=== PATIENT | male | born 1990 | race American Indian/Alaskan Native ===

== ENCOUNTER 2016-10-09 10:49 | Emergency (ER) | payer SELFPAY ==
[2016-10-09 11:11] VITALS: BP 132/86
[2016-10-09 11:37] LABS: Bacteria,Urine 1+ /HPF (Negative); Bilirubin,Urine NEG (Negative); Blood,Urine NEG (Negative); Ketones,Urine NEG (Negative); Leukocyte Esterase,Urine NEG (Negative); Mucus,Urine FEW /HPF; Nitrite,Urine NEG (Negative); Protein,Urine <15 mg/dL mg/dL (Negative)
[2016-10-09 11:38] LABS: WBC,Urine < 1.0 /HPF (0.0-6.0)
[2016-10-09] MEDS ORDERED: XYLOCAINE 1% MPF 5 mL INFILTRATI ONE (11:55)
[2016-10-09] MEDS ORDERED: ROCEPHIN IM ONE (11:55)
[2016-10-09] MEDS ORDERED: ZITHROMAX PO ONE (11:56)
--- NOTE | 2016-10-09 12:05 | Emergency Department Report ---
ED Male HPI - General Chief complaint: Urogenital-Male Stated complaint: STD CHECK UP Time Seen by Provider: 10/09/16 11:17 Source: patient Mode of arrival: Ambulatory Limitations: No Limitations - History of Present Illness Complaint: other (TINGLING W URINATION AND LESIONS OF PENIS ) -: Gradual (PRODROME OF ILLNESS 1 W AGO) Location: penis Severity scale (0 -10): 2 Quality: other (TINGLE WHEN URINATES; LESIONS PAINFUL) Consistency: intermittent Improves with: none Worsens with: none new sexual partner denies other symptoms, dysuria (TINGLE). denies: discharge, swelling, mass, rash, urinary retention, blood in urine, fever, nausea/vomiting, incontinence - Related Data Sexually active: Yes Home Medications Medication Instructions Recorded Confirmed Last Taken Buprenorphine HCl/Naloxone HCl 0.5 tab SL QDAY 10/09/16 10/09/16 10/09/16 02:00 [Zubsolv 8.6-2.1 mg Tablet Sl] Previous Rx's Medication Instructions Recorded Last Taken Type Acyclovir [Zovirax Cap] 200 mg PO 5XD #50 cap 10/09/16 Unknown Rx Allergies Allergy/AdvReac Type Severity Reaction Status Date / Time No Known Allergies Allergy Unverified 10/09/16 11:04 ED Review of Systems ROS: Stated complaint: STD CHECK UP Other details as noted in HPI Comment: Unobtainable due to pts medical conditions Constitutional: no symptoms reported, see HPI. denies: chills, diaphoresis, fever, malaise Eyes: as per HPI. denies: eye pain ENT: as per HPI. denies: ear pain, throat pain Respiratory: no symptoms reported, see HPI. denies: cough, orthopnea Cardiovascular: as per HPI. denies: chest pain, palpitations, dyspnea on exertion, orthopnea Endocrine: no symptoms reported, see HPI. denies: excessive sweating, flushing , intolerance to cold, intolerance to heat Gastrointestinal: as per HPI. denies: abdominal pain, nausea, vomiting, diarrhea, constipation, hematemesis, melena, hematochezia Genitourinary: as per HPI, dysuria (TINGLE), other (LESION). denies: urgency, frequency, hematuria, discharge, testicular pain, testicular mass Musculoskeletal: as per HPI. denies: back pain, joint swelling Skin: as per HPI Neurological: as per HPI. denies: headache, weakness Psychiatric: as per HPI. denies: anxiety, depression Hematological/Lymphatic: as per HPI. denies: easy bleeding ED Past Medical Hx - Past Medical History Previous Medical History?: Yes Additional medical history: NARC ADDICTION ON SUBOXONE - Surgical History Hx Appendectomy: Yes Additional Surgical History: left ACL repair - Family History Family history: no significant - Social History Smoking Status: Current Every Day Smoker Substance Use Type: Prescribed - Medications Home Medications: Home Medications Medication Instructions Recorded Confirmed Last Taken Type Acyclovir [Zovirax Cap] 200 mg PO 5XD #50 cap 10/09/16 Unknown Rx Buprenorphine HCl/Naloxone HCl 0.5 tab SL QDAY 10/09/16 10/09/16 10/09/16 02:00 History [Zubsolv 8.6-2.1 mg Tablet Sl] ED Physical Exam - General Limitations: No Limitations General appearance: alert, in no apparent distress - Head Head exam: Present: atraumatic - Eye Eye exam: Present: normal appearance - ENT ENT exam: Present: normal exam, normal orophraynx, mucous membranes moist - Neck Neck exam: Present: normal inspection. Absent: tenderness - Respiratory Respiratory exam: Present: normal lung sounds bilaterally - Cardiovascular Cardiovascular Exam: Present: regular rate - GI/Abdominal GI/Abdominal exam: Present: soft - Rectal Rectal exam: Present: normal inspection - exam: Present: circumcision. Absent: normal inspection, testicular tenderness, urethral discharge, scrotal swelling, vertical testicular lie External exam: Present: erythema, lesions (a linear patch of painful vesicular with yellow drainage lesions on shaft of penis. ). Absent: normal external exam , swelling, lacerations, ecchymosis, bleeding - Extremities Exam Extremities exam: Present: normal inspection, full ROM. Absent: tenderness - Back Exam Back exam: Present: normal inspection, full ROM. Absent: tenderness, CVA tenderness (R), CVA tenderness (L) - Neurological Exam Neurological exam: Present: alert, oriented X3, CN II-XII intact - Psychiatric Psychiatric exam: Present: normal affect, normal mood - Skin Skin exam: Present: warm, dry, intact, normal color ED Course Vital Signs 10/09/16 11:08 Temperature 98.4 F Pulse Rate 72 Respiratory 17 Rate Blood Pressure 132/86 O2 Sat by Pulse 97 Oximetry - Reevaluation(s) Reevaluation #2: 10/09/16 12:08 to er w what he thinks is sti tingle w burn and lesions as described in exam 1 w ago felt flu like s/s but just thought he was tired no fever no cva tenderness no hiv or immune compromise healthy appearing on subox for rx narc use new sex partner this year and his old sexual partner started in feb. only sex w women unprotected sex long discussion w pt about follow up and suppressive tx. ED Medical Decision Making - Medical Decision Making lesions suggestive of herpes on penile shaft - Differential Diagnosis UTI V STI Critical care attestation.: If time is entered above; I have spent that time in minutes in the direct care of this critically ill patient, excluding procedure time. ED Disposition Clinical Impression: STI (sexually transmitted infection), Herpes genitalia Disposition: - TO HOME OR SELFCARE Is pt being admited?: No Does the pt Need Aspirin: No Condition: Stable Instructions: Genital Herpes Simplex (ED), Safe Sex (ED), Sexually Transmitted Diseases in Adolescents (ED) Additional Instructions: safe sex med as ordered today you were treated here today for STI follow up with PCP for suppressive treatment Referrals: PRIMARY CAREMD [Primary Care Provider] - 3-5 Days SALINAS DONIS MD [Staff Physician] - 3-5 Days Time of Disposition: 12:05
== END 2016-10-09 13:03 | disposition home or self-care (01) ==
LOC: ED 10:49
DX: A64 Unspecified sexually transmitted disease (principal); A60.01 Herpesviral infection of penis; F17.200 Nicotine dependence, unspecified, uncomplicated
CPT/HCPCS: 81001; 87591; 96372; 99283; J0696

== ENCOUNTER 2017-03-30 16:00 | Emergency (ER) | payer SELFPAY ==
[2017-03-30 17:22] LABS: Hematocrit 42.8 % (35.5-45.6); Hemoglobin 13.8 gm/dl (11.8-15.2); Mean Corpuscular HGB Conc 32 % (32-34); Mean Corpuscular Hemoglobin 28 pg (28-32); Mean Corpuscular Volume 86 fl (84-94); Platelet Count 130 K/mm3 (140-440); Red Blood Count 4.95 M/mm3 (3.65-5.03); Red Cell Distribution Width 13.7 % (13.2-15.2)
[2017-03-30 17:26] LABS: Bilirubin,Urine NEG (Negative); Blood,Urine NEG (Negative); Color,Urine Yellow (Yellow); Mucus,Urine 3+ /HPF; Nitrite,Urine NEG (Negative)
[2017-03-30 17:54] LABS: BUN/Creatinine Ratio 12; Blood Urea Nitrogen 11 mg/dL (9-20); Calcium 8.4 mg/dL (8.4-10.2); Hemolysis Index 5
[2017-03-30 20:33] LABS: Basophils % (Manual) 0 % (0.0-1.8); Total Cells Counted 100
[2017-03-30 20:34] LABS: Anisocytosis RARE; Eosinophils % (Manual) 0 % (0.0-4.3); Platelet Estimate Consistent w Auto
[2017-03-30] MEDS ORDERED: NACL 0.9% 1000 ML 1,000 ML IV ONE (23:15)
[2017-03-30] MEDS ORDERED: MOTRIN PO ONE (23:15)
[2017-03-30] MEDS ORDERED: LIDOCAINE VISCOUS 2% PO ONE (23:15)
--- NOTE | 2017-03-30 23:38 | Emergency Department Report ---
- General Chief Complaint: Urogenital-Male Stated Complaint: STD, FLU Time Seen by Provider: 03/30/17 21:10 Source: patient Mode of arrival: Ambulatory Limitations: No Limitations - History of Present Illness Initial Comments: This is a 27-year-old male nontoxic, well nourished in appearance, no acute signs of distress presents to the ED with c/o of productive cough, body aches, fever, chills, rhinorrhea, and nasal congestion 2 days. Patient describes productive cough as yellow/green mucus production. Patient also is complainng about possible STD. Patient stated he had unprotected sex with a female last week and developed symptoms couple days later with canal discharge. Patient denies any testicular pain or testicular swelling. Patient denies any penile ulcers or penile lesions. Patient denies polyuria, hematuira, or dysuria, Denies back pain. Patient denies any recent travels, long car rides, recent hospital stays. Patient denies any calf pain or calf tenderness. Denies any hemoptysis. Patient denies chest pain, shortness of breath, fever, chills, nausea, vomiting, headache, stiff neck, numbness, tingling. Patient denies any allergies or PMH. MD Complaint: fever, cough, rhinorrhea, nasal congestion, other (body aches) -: days(s) (2) Severity: mild Severity scale (0 -10): 8 Quality: aching Consistency: constant Improves With: nothing Worsens With: nothing Associated Symptoms: fever, chills, rhinorrhea, nasal congestion, cough, other ( penile discharge). denies: myalgias, diaphoresis, headache, sore throat, stiff neck, chest pain, shortness of breath, abdominal pain, nausea, vomiting, diarrhea, dysuria, rash, confusion, right sweats, weight loss, epistaxis, hoarseness, ear pain Treatments Prior to Arrival: none - Related Data Home Medications Medication Instructions Recorded Confirmed Last Taken Buprenorphine HCl/Naloxone HCl 0.5 tab SL QDAY 10/09/16 10/09/16 10/09/16 02:00 [Zubsolv 8.6-2.1 mg Tablet Sl] Previous Rx's Medication Instructions Recorded Last Taken Type Acyclovir [Zovirax Cap] 200 mg PO 5XD #50 cap 10/09/16 Unknown Rx Ibuprofen [Motrin] 600 mg PO Q8H PRN #30 tablet 03/31/17 Unknown Rx Levofloxacin [Levaquin TAB] 750 mg PO QDAY #7 tablet 03/31/17 Unknown Rx Oseltamivir [Tamiflu] 75 mg PO BID #14 cap 03/31/17 Unknown Rx Allergies Allergy/AdvReac Type Severity Reaction Status Date / Time No Known Allergies Allergy Unverified 10/09/16 11:04 ED Review of Systems ROS: Stated complaint: STD, FLU Other details as noted in HPI Constitutional: chills, fever Eyes: denies: eye pain, eye discharge, vision change ENT: denies: ear pain, throat pain Respiratory: cough. denies: shortness of breath, wheezing Cardiovascular: denies: chest pain, palpitations Endocrine: no symptoms reported Gastrointestinal: denies: abdominal pain, nausea, diarrhea Genitourinary: discharge. denies: urgency, dysuria Musculoskeletal: denies: back pain, joint swelling, arthralgia Skin: denies: rash, lesions Neurological: denies: headache, weakness, paresthesias Psychiatric: denies: anxiety, depression Hematological/Lymphatic: denies: easy bleeding, easy bruising ED Past Medical Hx - Past Medical History Previous Medical History?: Yes Additional medical history: NARC ADDICTION ON SUBOXONE - Surgical History Past Surgical History?: Yes Hx Appendectomy: Yes Additional Surgical History: left ACL repair - Social History Smoking Status: Current Every Day Smoker Substance Use Type: Marijuana, Prescribed - Medications Home Medications: Home Medications Medication Instructions Recorded Confirmed Last Taken Type Acyclovir [Zovirax Cap] 200 mg PO 5XD #50 cap 10/09/16 Unknown Rx Buprenorphine HCl/Naloxone HCl 0.5 tab SL QDAY 10/09/16 10/09/16 10/09/16 02:00 History [Zubsolv 8.6-2.1 mg Tablet Sl] Ibuprofen [Motrin] 600 mg PO Q8H PRN #30 tablet 03/31/17 Unknown Rx Levofloxacin [Levaquin TAB] 750 mg PO QDAY #7 tablet 03/31/17 Unknown Rx Oseltamivir [Tamiflu] 75 mg PO BID #14 cap 03/31/17 Unknown Rx ED Physical Exam - General Limitations: No Limitations General appearance: alert, in no apparent distress - Head Head exam: Present: atraumatic, normocephalic, normal inspection - Eye Eye exam: Present: normal appearance, PERRL, EOMI. Absent: scleral icterus, conjunctival injection, nystagmus, periorbital swelling, periorbital tenderness Pupils: Present: normal accommodation - ENT ENT exam: Present: normal exam, normal orophraynx, mucous membranes moist, TM's normal bilaterally, normal external ear exam - Neck Neck exam: Present: normal inspection, full ROM. Absent: tenderness, meningismus, lymphadenopathy, thyromegaly - Respiratory Respiratory exam: Present: normal lung sounds bilaterally. Absent: respiratory distress, wheezes, rales, rhonchi, stridor, chest wall tenderness, accessory muscle use, decreased breath sounds, prolonged expiratory - Cardiovascular Cardiovascular Exam: Present: regular rate, normal rhythm, normal heart sounds. Absent: irregular rhythm, systolic murmur, diastolic murmur, rubs, gallop - GI/Abdominal GI/Abdominal exam: Present: soft, normal bowel sounds. Absent: distended, tenderness, guarding, rebound, rigid, diminished bowel sounds - Rectal Rectal exam: Present: deferred - exam: Present: normal inspection, urethral discharge (white/yellow color). Absent: testicular tenderness, scrotal swelling, vertical testicular lie External exam: Present: normal external exam. Absent: erythema, swelling, lesions, lacerations, ecchymosis, bleeding - Extremities Exam Extremities exam: Present: normal inspection, full ROM, normal capillary refill. Absent: tenderness, pedal edema, joint swelling, calf tenderness - Back Exam Back exam: Present: normal inspection, full ROM. Absent: tenderness, CVA tenderness (R), CVA tenderness (L), muscle spasm, paraspinal tenderness, vertebral tenderness, rash noted - Neurological Exam Neurological exam: Present: alert, oriented X3 - Psychiatric Psychiatric exam: Present: normal affect, normal mood - Skin Skin exam: Present: warm, dry, intact, normal color. Absent: rash ED Course Vital Signs 03/30/17 03/31/17 16:52 01:36 Temperature 101.4 F H 98.5 F Pulse Rate 94 H 82 Respiratory 20 18 Rate Blood Pressure 112/61 Blood Pressure 110/72 [Right] O2 Sat by Pulse 98 100 Oximetry - Reevaluation(s) Reevaluation #1: 03/30/17 23:41 Patient is speaking in full sentences with no signs of distress noted. - Consultations Consultation #1: 03/30/17 23:41 Dr. Pisano has been consulted about patient history, physical exam, and lab findings and agrees to the plan of care in the ED and discharge follow-up. ED Medical Decision Making - Lab Data Result diagrams: 03/30/17 17:04 03/30/17 17:04 - Medical Decision Making This is a 27-year-old male that presents with pneumonia and possible STD exposure. Patient is stable and was examined by me. Chest x-ray has been obtained and dictated by radiologist with pneumonia. Patient notified of x-ray results with no plates noted by the patient. Influenza swab negative. Patient received Motrin, lidocaine viscous and Tessalon Perles in the ED. patient also received 1 L of normal saline. Patient received 1 g of Rocephin and 1 g of azithromycin. He will obtain. Gonorrhea and chlamydia pending. Patient was instructed to return in 3 days to obtain results of gonorrhea and chlamydia. Vital signs stable prior to discharge. Patient is afebrile. Normal heart rate. I'll treat patient with Levaquin at discharge due to patient stating symptoms are worsening. I will also treat patient with Tamiflu due to flulike symptoms empirically. Patient was orally rehydrated in the ER and patient tolerated well with no signs of nasuea or vomiting. Patient was instructed Follow-up with a primary care doctor in 3-5 days or if symptoms worsen and continue return to emergency room as soon as possible. At time time of discharge, the patient does not seem toxic or ill in appearance. No acute signs of distress noted. Patient agrees to discharge treatment plan of care. No further questions noted by the patient. Critical care attestation.: If time is entered above; I have spent that time in minutes in the direct care of this critically ill patient, excluding procedure time. ED Disposition Clinical Impression: Possible exposure to STD PNA (pneumonia) Qualifiers: Pneumonia type: due to unspecified organism Laterality: right Lung location: middle lobe of lung Qualified Code(s): J18.1 - Lobar pneumonia, unspecified organism Disposition: TO HOME OR SELFCARE Is pt being admited?: No Does the pt Need Aspirin: No Condition: Stable Instructions: Bacterial Pneumonia (ED), Safe Sex (ED), Levofloxacin (By mouth) , Fever in Adults (ED), Ibuprofen (By mouth) Additional Instructions: Follow-up with a primary care doctor in 3-5 days or if symptoms worsen and continue return to emergency room as soon as possible. Increase hydration, rest, and take Motrin as prescribed for fever episode. Return in 3 days to obtain results of gonorrhea and chlamydia. Prescriptions: Ibuprofen [Motrin] 600 mg PO Q8H PRN #30 tablet PRN Reason: Fever Levofloxacin [Levaquin TAB] 750 mg PO QDAY #7 tablet Oseltamivir [Tamiflu] 75 mg PO BID #14 cap Referrals: ANALI ESPARZA MD [Primary Care Provider] - 3-5 Days PRIMARY CARE, [Referring] - 3-5 Days [facility] [Outside] - 3-[address] [facility] [Outside] - 3-5 Days Forms: Work/School Release Form(ED)
--- NOTE | 2017-03-31 00:55 | XRay Report ---
FINAL REPORT EXAM: XR CHEST ROUTINE 2V HISTORY: cough TECHNIQUE: 2 views of the chest. PRIORS: None. FINDINGS: The cardiomediastinal silhouette appears normal. There is a patchy right middle lobe infiltrate consistent with pneumonia. The bones and soft tissues are unremarkable. IMPRESSION: Patchy right middle lobe infiltrate consistent with pneumonia
[2017-03-31 01:37] VITALS: BP 110/72
[2017-03-31] MEDS ORDERED: ROCEPHIN IM ONE (01:37)
[2017-03-31] MEDS ORDERED: ZITHROMAX PO ONE (01:37)
[2017-03-31] MEDS ORDERED: XYLOCAINE 1% MPF 5 mL INFILTRATI ONE (01:37)
[2017-03-31] MEDS ORDERED: ZOFRAN ODT ONE (04:35)
[2017-03-31] MEDS ORDERED: ZOFRAN ODT PO ONE (04:37)
== END 2017-03-31 04:25 | disposition home or self-care (01) ==
LOC: ED 16:00
DX: J18.1 Lobar pneumonia, unspecified organism (principal); F17.200 Nicotine dependence, unspecified, uncomplicated; F12.10 Cannabis abuse, uncomplicated; Z90.49 Acquired absence of other specified parts of digestive tract
CPT/HCPCS: 36415; 71046; 80048; 81001; 82140; 82550; 85007; 85025; 87040; 87086; 87116; 87400; 87430; 87591; 96360; 96372; 99284; J0696; J7030; Q0162

== ENCOUNTER 2018-05-20 08:49 | Emergency (ER) | payer BC, OTHER ==
[2018-05-20 09:01] VITALS: BP 123/82
--- NOTE | 2018-05-20 09:40 | Emergency Department Report ---
ED General Adult HPI - General Chief complaint: Medical Clearance Stated complaint: CHEST PAIN/HICCUPS Time Seen by Provider: 05/20/18 09:26 Source: patient Mode of arrival: Ambulatory Limitations: No Limitations - History of Present Illness Initial comments: Pt presents to the ED with c/o hiccuping consistently for the last 8 hours. The patient states that he took a couple of sips of coke and then begin to experience the hiccups. He denies any belching, nausea, vomiting, burning sensation. He denies any hx of GERD. He states he has never had this occur before. The patient denies any tongue edema, SOB, feeling like anything is stuck. Pt also has had a bump present in the left groin that began a couple of weeks ago. he states it will go away and come back. He denies any fever or drainage. - Related Data Home Medications Medication Instructions Recorded Confirmed Last Taken Buprenorphine HCl/Naloxone HCl 0.5 tab SL QDAY 10/09/16 10/09/16 10/09/16 02:00 [Zubsolv 8.6-2.1 mg Tablet Sl] Previous Rx's Medication Instructions Recorded Last Taken Type Acyclovir [Zovirax Cap] 200 mg PO 5XD #50 cap 10/09/16 Unknown Rx Ibuprofen [Motrin 600 MG tab] 600 mg PO Q8H PRN #30 tablet 03/31/17 Unknown Rx Oseltamivir [Tamiflu] 75 mg PO BID #14 cap 03/31/17 Unknown Rx levoFLOXacin [Levaquin TAB] 750 mg PO QDAY #7 tablet 03/31/17 Unknown Rx Famotidine [Pepcid] 20 mg PO DAILY #20 tablet 05/20/18 Unknown Rx Sulfamethoxazole/Trimethoprim 1 each PO BID 7 Days #14 tablet 05/20/18 Unknown Rx [Bactrim DS TAB] Allergies Allergy/AdvReac Type Severity Reaction Status Date / Time No Known Allergies Allergy Verified 05/20/18 08:50 ED Review of Systems ROS: Stated complaint: CHEST PAIN/HICCUPS Other details as noted in HPI Comment: All other systems reviewed and negative ED Past Medical Hx - Past Medical History Previous Medical History?: No Additional medical history: NARC ADDICTION ON SUBOXONE - Surgical History Hx Appendectomy: Yes Additional Surgical History: left ACL repair - Social History Smoking Status: Current Every Day Smoker - Medications Home Medications: Home Medications Medication Instructions Recorded Confirmed Last Taken Type Acyclovir [Zovirax Cap] 200 mg PO 5XD #50 cap 10/09/16 Unknown Rx Buprenorphine HCl/Naloxone HCl 0.5 tab SL QDAY 10/09/16 10/09/16 10/09/16 02:00 History [Zubsolv 8.6-2.1 mg Tablet Sl] Ibuprofen [Motrin 600 MG tab] 600 mg PO Q8H PRN #30 tablet 03/31/17 Unknown Rx Oseltamivir [Tamiflu] 75 mg PO BID #14 cap 03/31/17 Unknown Rx levoFLOXacin [Levaquin TAB] 750 mg PO QDAY #7 tablet 03/31/17 Unknown Rx Famotidine [Pepcid] 20 mg PO DAILY #20 tablet 05/20/18 Unknown Rx Sulfamethoxazole/Trimethoprim 1 each PO BID 7 Days #14 tablet 05/20/18 Unknown Rx [Bactrim DS TAB] ED Physical Exam - General Limitations: No Limitations General appearance: alert, in no apparent distress - Head Head exam: Present: atraumatic, normocephalic - Eye Eye exam: Present: normal appearance - ENT ENT exam: Present: normal orophraynx, mucous membranes moist, other (no angioedema) - Respiratory Respiratory exam: Present: normal lung sounds bilaterally. Absent: respiratory distress, wheezes, rales, rhonchi, stridor, chest wall tenderness, accessory muscle use, decreased breath sounds, prolonged expiratory - Cardiovascular Cardiovascular Exam: Present: regular rate, normal rhythm, normal heart sounds. Absent: systolic murmur, rubs, gallop - GI/Abdominal GI/Abdominal exam: Present: soft, normal bowel sounds. Absent: distended, tenderness, guarding, rebound, rigid, diminished bowel sounds, hyperactive bowel sounds, hypoactive bowel sounds - exam: Present: other (male nursing specialist present during examination, very, small induration present in the crease of the left groin, no drainge, no fluctuance, no erythema) ED Course Vital Signs 05/20/18 09:01 Temperature 97.8 F Pulse Rate 86 Respiratory 16 Rate Blood Pressure 123/82 O2 Sat by Pulse 100 Oximetry ED Medical Decision Making - Medical Decision Making Pt presents with hiccups x 8 hours. Hiccups have now stopped. Pt concerned for them to return. Will tx pt in ED and give prescription for pepcid. Advised to return if continued sx. Pt also with folliculitis in the groin. No fluctuance, no need for drainage. Will place on abx. Advised to use warm compresses Advised pt to follow up with primary care in the next 2-3 days. Return to the ED for new or worsening symptoms. - Differential Diagnosis Hiccups, GERD, Indigestion, Gas, Abscess, foliculitis Critical care attestation.: If time is entered above; I have spent that time in minutes in the direct care of this critically ill patient, excluding procedure time. ED Disposition Clinical Impression: Hiccups, Folliculitis Disposition: TO HOME OR SELFCARE Is pt being admited?: No Does the pt Need Aspirin: No Condition: Stable Instructions: Hiccups (ED), Folliculitis (ED) Additional Instructions: Follow up with primary care doctor in the next two to three days. Take all medication as prescribed. Use warm compresses on groin. Return to the emergency room for any new or worsening symptoms. Prescriptions: Sulfamethoxazole/Trimethoprim [Bactrim DS TAB] 1 each PO BID 7 Days #14 tablet Famotidine [Pepcid] 20 mg PO DAILY #20 tablet Referrals: [facility] [Provider Group] - 2-3 Days Time of Disposition: 09:41 Print Language: LUXEMBOURGER
[2018-05-20] MEDS ORDERED: THORAZINE PO ONE (10:00)
== END 2018-05-20 10:40 | disposition home or self-care (01) ==
LOC: ED 08:49
DX: L73.9 Follicular disorder, unspecified (principal); R06.6 Hiccough; F17.200 Nicotine dependence, unspecified, uncomplicated
CPT/HCPCS: 99282; Q0161

== ENCOUNTER 2018-10-23 05:00 | Emergency (ER) | payer SELFPAY ==
[2018-10-23 05:12] VITALS: BP 118/71
[2018-10-23] MEDS ORDERED: PERCOCET 5/325 PO ONE (05:18)
[2018-10-23] MEDS ORDERED: LIDOCAINE VISCOUS 2% MM STA (05:19)
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
== END 2018-10-23 05:40 | disposition home or self-care (01) ==
LOC: ED 05:00
DX: K08.89 Other specified disorders of teeth and supporting structures (principal); K02.9 Dental caries, unspecified; F17.200 Nicotine dependence, unspecified, uncomplicated; Z90.49 Acquired absence of other specified parts of digestive tract; Z98.890 Other specified postprocedural states; Z79.899 Other long term (current) drug therapy

== ENCOUNTER 2018-12-10 16:26 | Emergency (ER) | payer SELFPAY ==
[2018-12-10 16:33] VITALS: BP 118/82
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
== END 2018-12-10 17:15 | disposition left against medical advice (07) ==
LOC: ED 16:26
DX: Z20.2 Contact with and (suspected) exposure to infections with a predominantly sexual mode of transmission (principal)
CPT/HCPCS: 99282

== ENCOUNTER 2019-01-21 22:57 | Emergency (ER) | payer OTHER ==
[2019-01-21 23:12] VITALS: BP 130/79
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
[2019-01-22] MEDS ORDERED: KETOROLAC 30 MG/1 ML INJ IV ONE (00:05)
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
[2019-01-22 00:55] LABS: Basophils % (Auto) 0.7 % (0.0-1.8); Eosinophils % (Auto) 0.7 % (0.0-4.3); Hematocrit 40.2 % (35.5-45.6); Hemoglobin 13.4 gm/dl (11.8-15.2); Lymphocytes # (Auto) 0.8 K/mm3 (1.2-5.4); Lymphocytes % (Auto) 18.3 % (13.4-35.0); Mean Corpuscular HGB Conc 33 % (32-34); Mean Corpuscular Volume 92 fl (84-94); Monocytes # (Auto) 0.5 K/mm3 (0.0-0.8); Monocytes % (Auto) 11.5 % (0.0-7.3); Platelet Count 178 K/mm3 (140-440); Red Blood Count 4.37 M/mm3 (3.65-5.03)
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
[2019-01-22 01:20] LABS: BUN/Creatinine Ratio 16; Blood Urea Nitrogen 18 mg/dL (9-20); Calcium 9.2 mg/dL (8.4-10.2); Hemolysis Index 6
[2019-01-22 01:22] LABS: Bilirubin,Urine NEG (Negative); Blood,Urine SM (Negative); Color,Urine Yellow (Yellow); Mucus,Urine 1+ /HPF
== END 2019-01-22 02:09 | disposition home or self-care (01) ==
LOC: ED 22:57
DX: N20.0 Calculus of kidney (principal); F17.200 Nicotine dependence, unspecified, uncomplicated; Z90.89 Acquired absence of other organs; Z79.899 Other long term (current) drug therapy; Z98.890 Other specified postprocedural states; V49.49XA Driver injured in collision with other motor vehicles in traffic accident, initial encounter; Y93.89 Activity, other specified; Y92.410 Unspecified street and highway as the place of occurrence of the external cause; Y99.8 Other external cause status
CPT/HCPCS: 36415; 71046; 74177; 80048; 81001; 85025; 93005; 93010; 96374; 99285; J1885; Q9967

== ENCOUNTER 2019-09-23 06:18 | Emergency (ER) | payer SELFPAY | END 2019-09-23 06:36 | disposition left against medical advice (07) | LOC: ED 06:18 | DX: Z53.21 Procedure and treatment not carried out due to patient leaving prior to being seen by health care provider (principal) ==

== ENCOUNTER 2019-09-25 03:38 | Emergency (ER) | payer SELFPAY ==
[2019-09-25 03:47] VITALS: BP 132/76
== END 2019-09-25 04:38 | disposition left against medical advice (07) ==
LOC: ED 03:38
DX: Z20.2 Contact with and (suspected) exposure to infections with a predominantly sexual mode of transmission (principal); Z53.21 Procedure and treatment not carried out due to patient leaving prior to being seen by health care provider

== ENCOUNTER 2020-03-27 01:08 | Emergency (ER) | payer SELFPAY ==
[2020-03-27 01:21] VITALS: BP 128/85
--- NOTE | 2020-03-27 01:21 | Emergency Department Report ---
ED ENT HPI - General Stated complaint: RT EARACHE Time Seen by Provider: 03/27/20 01:15 - History of Present Illness Initial comments: 30-year-old male smoker department complaining of having decreased hearing to his ears and has suspicion of having earwax buildup and presents emergency department stating he may need earwax removal. Reports no bleeding, no trauma, no fever, chills, sweats no odynophagia or dysphagia no neck pain MD complaint: ear pain Severity scale (0 -10): 0 Improves with: none Worsens with: none Associated Symptoms: hearing loss. denies: sore throat, discharge from ear, rhinorrhea - Related Data Home Medications Medication Instructions Recorded Confirmed Last Taken Buprenorphine HCl/Naloxone HCl 0.5 tab SL QDAY 10/09/16 10/09/16 10/09/16 02:00 [Zubsolv 8.6-2.1 mg Tablet Sl] Previous Rx's Medication Instructions Recorded Last Taken Type Acyclovir [Zovirax Cap] 200 mg PO 5XD #50 cap 10/09/16 Unknown Rx Ibuprofen [Motrin 600 MG tab] 600 mg PO Q8H PRN #30 tablet 03/31/17 Unknown Rx Oseltamivir [Tamiflu] 75 mg PO BID #14 cap 03/31/17 Unknown Rx levoFLOXacin [Levaquin TAB] 750 mg PO QDAY #7 tablet 03/31/17 Unknown Rx Famotidine [Pepcid] 20 mg PO DAILY #20 tablet 05/20/18 Unknown Rx Sulfamethoxazole/Trimethoprim 1 each PO BID 7 Days #14 tablet 05/20/18 Unknown Rx [Bactrim DS TAB] Amoxicillin [Amoxicillin TAB] 875 mg PO BID #20 tablet 10/23/18 Unknown Rx Chlorhexidine Mouthwash [Peridex] 15 ml MM BID #473 bottle 10/23/18 Unknown Rx Ketorolac [Toradol] 10 mg PO Q6H PRN #15 tablet 10/23/18 Unknown Rx Lidocaine Viscous 2% 15 ml MM Q4H #240 udc 10/23/18 Unknown Rx Cyclobenzaprine [Flexeril] 10 mg PO TID PRN #20 tablet 01/22/19 Unknown Rx Ibuprofen [Motrin] 800 mg PO Q8HR PRN #30 tablet 01/22/19 Unknown Rx Allergies Allergy/AdvReac Type Severity Reaction Status Date / Time coconut Allergy Swelling Verified 09/25/19 03:45 ED Dental HPI - General Stated complaint: RT EARACHE Time Seen by Provider: 03/27/20 01:15 - Related Data Home Medications Medication Instructions Recorded Confirmed Last Taken Buprenorphine HCl/Naloxone HCl 0.5 tab SL QDAY 10/09/16 10/09/16 10/09/16 02:00 [Zubsolv 8.6-2.1 mg Tablet Sl] Previous Rx's Medication Instructions Recorded Last Taken Type Acyclovir [Zovirax Cap] 200 mg PO 5XD #50 cap 10/09/16 Unknown Rx Ibuprofen [Motrin 600 MG tab] 600 mg PO Q8H PRN #30 tablet 03/31/17 Unknown Rx Oseltamivir [Tamiflu] 75 mg PO BID #14 cap 03/31/17 Unknown Rx levoFLOXacin [Levaquin TAB] 750 mg PO QDAY #7 tablet 03/31/17 Unknown Rx Famotidine [Pepcid] 20 mg PO DAILY #20 tablet 05/20/18 Unknown Rx Sulfamethoxazole/Trimethoprim 1 each PO BID 7 Days #14 tablet 05/20/18 Unknown Rx [Bactrim DS TAB] Amoxicillin [Amoxicillin TAB] 875 mg PO BID #20 tablet 10/23/18 Unknown Rx Chlorhexidine Mouthwash [Peridex] 15 ml MM BID #473 bottle 10/23/18 Unknown Rx Ketorolac [Toradol] 10 mg PO Q6H PRN #15 tablet 10/23/18 Unknown Rx Lidocaine Viscous 2% 15 ml MM Q4H #240 udc 10/23/18 Unknown Rx Cyclobenzaprine [Flexeril] 10 mg PO TID PRN #20 tablet 01/22/19 Unknown Rx Ibuprofen [Motrin] 800 mg PO Q8HR PRN #30 tablet 01/22/19 Unknown Rx Allergies Allergy/AdvReac Type Severity Reaction Status Date / Time coconut Allergy Swelling Verified 09/25/19 03:45 ED Review of Systems ROS: Stated complaint: RT EARACHE Other details as noted in HPI Comment: All other systems reviewed and negative ED Past Medical Hx - Past Medical History Additional medical history: NARC ADDICTION ON SUBOXONE - Surgical History Hx Appendectomy: Yes Additional Surgical History: left ACL repair - Social History Smoking Status: Never Smoker Substance Use Type: None - Medications Home Medications: Home Medications Medication Instructions Recorded Confirmed Last Taken Type Acyclovir [Zovirax Cap] 200 mg PO 5XD #50 cap 10/09/16 Unknown Rx Buprenorphine HCl/Naloxone HCl 0.5 tab SL QDAY 10/09/16 10/09/16 10/09/16 02:00 History [Zubsolv 8.6-2.1 mg Tablet Sl] Ibuprofen [Motrin 600 MG tab] 600 mg PO Q8H PRN #30 tablet 03/31/17 Unknown Rx Oseltamivir [Tamiflu] 75 mg PO BID #14 cap 03/31/17 Unknown Rx levoFLOXacin [Levaquin TAB] 750 mg PO QDAY #7 tablet 03/31/17 Unknown Rx Famotidine [Pepcid] 20 mg PO DAILY #20 tablet 05/20/18 Unknown Rx Sulfamethoxazole/Trimethoprim 1 each PO BID 7 Days #14 tablet 05/20/18 Unknown Rx [Bactrim DS TAB] Amoxicillin [Amoxicillin TAB] 875 mg PO BID #20 tablet 10/23/18 Unknown Rx Chlorhexidine Mouthwash [Peridex] 15 ml MM BID #473 bottle 10/23/18 Unknown Rx Ketorolac [Toradol] 10 mg PO Q6H PRN #15 tablet 10/23/18 Unknown Rx Lidocaine Viscous 2% 15 ml MM Q4H #240 udc 10/23/18 Unknown Rx Cyclobenzaprine [Flexeril] 10 mg PO TID PRN #20 tablet 01/22/19 Unknown Rx Ibuprofen [Motrin] 800 mg PO Q8HR PRN #30 tablet 01/22/19 Unknown Rx ED Physical Exam - General General appearance: alert, in no apparent distress - Head Head exam: Present: atraumatic, normocephalic - Eye Eye exam: Present: normal appearance, PERRL, EOMI Pupils: Present: normal accommodation - ENT ENT exam: Present: normal exam, normal orophraynx, mucous membranes moist, TM's normal bilaterally - Neck Neck exam: Present: normal inspection, full ROM - Respiratory Respiratory exam: Present: normal lung sounds bilaterally. Absent: respiratory distress, wheezes, rhonchi, chest wall tenderness - Cardiovascular Cardiovascular Exam: Present: regular rate, normal rhythm. Absent: systolic murmur, diastolic murmur, rubs, gallop - GI/Abdominal GI/Abdominal exam: Present: soft, normal bowel sounds. Absent: distended, tenderness, rebound - Rectal Rectal exam: Present: deferred - Extremities Exam Extremities exam: Present: normal inspection, normal capillary refill - Back Exam Back exam: Present: normal inspection. Absent: CVA tenderness (R), CVA tenderness (L) - Neurological Exam Neurological exam: Present: alert, oriented X3, CN II-XII intact, normal gait - Psychiatric Psychiatric exam: Present: normal affect, normal mood - Skin Skin exam: Present: warm, dry, intact, normal color. Absent: rash Critical care attestation.: If time is entered above; I have spent that time in minutes in the direct care of this critically ill patient, excluding procedure time. ED Disposition Clinical Impression: Cerumen in auditory canal on examination, Cerumen debris on tympanic membrane of right ear Disposition: [facility] SCREENING EXAM-LEFT Is pt being admited?: No Does the pt Need Aspirin: No Condition: Stable Additional Instructions: Use Debrox OTC into the ear to cordwood cutter helper with earwax removal for some reason you still having complications feel free to follow-up with any of the urgent care or walk-in clinics for assistance for removal Referrals: [facility] [Provider Group] - 3-5 Days
== END 2020-03-27 01:31 | disposition left against medical advice (07) ==
LOC: ED 01:08
DX: H61.21 Impacted cerumen, right ear (principal); Z79.1 Long term (current) use of non-steroidal anti-inflammatories (NSAID); Z79.2 Long term (current) use of antibiotics; Z79.899 Other long term (current) drug therapy; Z88.8 Allergy status to other drugs, medicaments and biological substances; Z53.21 Procedure and treatment not carried out due to patient leaving prior to being seen by health care provider